=== PATIENT | female | born 1970 | race African-American/Black ===

== ENCOUNTER → 2018-10-26 | Outpatient (CLI) | payer OTHER | LOC: M.RAD 10:56 | DX: Z12.31 Encounter for screening mammogram for malignant neoplasm of breast (principal) ==

== ENCOUNTER 2018-11-09 16:20 | Emergency (ER) | payer OTHER ==
[~2018-11-09] VITALS: Ht 175.3 cm; Wt 96.2 kg
[2018-11-09] MEDS ORDERED: TOPAMAX 100 MG100 MG PO (16:41)
[2018-11-09] MEDS ORDERED: SYNTHROID100 MC1 PO (16:41)
[2018-11-09] MEDS ORDERED: UNICOMPLEX M TA1 TA1 PO (16:42)
[2018-11-09] MEDS ORDERED: IRON325 PO (16:42)
[2018-11-09] MEDS ORDERED: OMEPRAZOLE 20 M20 M1 PO (16:42)
[2018-11-09] MEDS ORDERED: LASIX 20 MG TAB20 MG PO (16:42)
[2018-11-09] MEDS ORDERED: NAPROSYN500 MG PO (17:42)
[2018-11-09] MEDS ORDERED: ROBAXIN500 MG PO (17:42)
[2018-11-09 17:55] VITALS: BP 125/79
--- NOTE | 2018-11-10 10:15 | EKG ---
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: MS : 1970 Requested By: Whit Henderson Order Number: [id number] MD: Dennys Callaway Measurements Intervals [place] Rate: 73 P: 48 AK: 145 QRS: 18 QRSD: 113 T: 25 QT: 393 QTc: 433 Interpretive Statements Sinus rhythm Borderline intraventricular conduction delay No previous ECG available for comparison Electronically Signed On 11-10-2018 10:15:04 [employer] by Dennys Callaway [email or web address] <ELECTRONICALLY SIGNED> By: Dennys Callaway MD, [facility] 11/10/18 1015 1630 1630 Dennys Callaway MD, FACC /EPI
== END 2018-11-09 17:56 | disposition home or self-care (01) ==
LOC: M.ERS 16:20
DX: S29.011A Strain of muscle and tendon of front wall of thorax, initial encounter (principal); M94.0 Chondrocostal junction syndrome [Tietze]; E03.9 Hypothyroidism, unspecified; G43.909 Migraine, unspecified, not intractable, without status migrainosus; K58.9 Irritable bowel syndrome, unspecified; Z88.5 Allergy status to narcotic agent; V89.2XXA Person injured in unspecified motor-vehicle accident, traffic, initial encounter; Y93.89 Activity, other specified; Y92.89 Other specified places as the place of occurrence of the external cause; Y99.8 Other external cause status

== ENCOUNTER → 2018-11-12 | Outpatient (CLI) | payer OTHER ==
[~2018-11-12] MED LIST: IRON325 PO; LASIX 20 MG TAB20 MG PO; NAPROSYN500 MG PO; OMEPRAZOLE 20 M20 M1 PO; ROBAXIN500 MG PO; SYNTHROID100 MC1 PO; TOPAMAX 100 MG100 MG PO; UNICOMPLEX M TA1 TA1 PO
== END ==
LOC: M.RAD 10:01 → M.ULTRA 11:00
DX: N63.13 Unspecified lump in the right breast, lower outer quadrant (principal); N63.21 Unspecified lump in the left breast, upper outer quadrant; R92.8 Other abnormal and inconclusive findings on diagnostic imaging of breast

== ENCOUNTER → 2019-05-05 | Outpatient (CLI) | payer OTHER | LOC: M.RAD 14:00 | DX: R92.2 Inconclusive mammogram (principal) ==